=== PATIENT | male | born 1950 | race Caucasian/White ===

== ENCOUNTER 2017-09-27 18:34 | Emergency (ER) | payer OTHER ==
[~2017-09-27] VITALS: Ht 175.3 cm; Wt 90.7 kg
[~2017-09-27 18:34] MED LIST: CRESTOR5 MG PO; FLOMAX PO; MINOCYCLINE HC100 M2 PO; MOBIC15 MG PO; OXYCONTIN30 MG PO; PLAVIX 75 MG TA75 MG PO
[2017-09-27] MEDS ORDERED: ZOCOR20 MG PO (18:53)
[2017-09-27] MEDS ORDERED: ADVAIR HFA 230M12 GM INH (18:53)
[2017-09-27] MEDS ORDERED: SYNTHROID50 MCG PO (18:54)
[2017-09-27] MEDS ORDERED: ALENDRONATE SOD10 MG PO (18:54)
[2017-09-27] MEDS ORDERED: LISINOPRIL10 MG PO (18:54)
[2017-09-27] MEDS ORDERED: IBUPROFEN 800800 M1 PO (20:57)
[2017-09-27] MEDS ORDERED: PERCOCET PO (20:57)
[2017-09-27 21:47] VITALS: BP 135/85
== END 2017-09-27 21:48 | disposition home or self-care (01) ==
LOC: M.ERS 18:34
DX: S92.001A Unspecified fracture of right calcaneus, initial encounter for closed fracture (principal); N40.0 Benign prostatic hyperplasia without lower urinary tract symptoms; E78.00 Pure hypercholesterolemia, unspecified; I10 Essential (primary) hypertension; E03.9 Hypothyroidism, unspecified; J44.9 Chronic obstructive pulmonary disease, unspecified; Z90.49 Acquired absence of other specified parts of digestive tract; Z90.89 Acquired absence of other organs; W11.XXXA Fall on and from ladder, initial encounter; Y93.89 Activity, other specified; Y92.89 Other specified places as the place of occurrence of the external cause; Y99.8 Other external cause status

== ENCOUNTER → 2017-10-05 | Outpatient (CLI) | payer OTHER ==
[~2017-10-05] MED LIST changes: +ADVAIR HFA 230M12 GM INH; +ALENDRONATE SOD10 MG PO; +IBUPROFEN 800800 M1 PO; +LISINOPRIL10 MG PO; +PERCOCET PO; +SYNTHROID50 MCG PO; +ZOCOR20 MG PO
== END ==
LOC: M.NUC 10:31
DX: S92.001D Unspecified fracture of right calcaneus, subsequent encounter for fracture with routine healing (principal); M54.5 Low back pain; M25.559 Pain in unspecified hip; X58.XXXD Exposure to other specified factors, subsequent encounter

== ENCOUNTER 2020-02-14 23:04 | Emergency (ER) | payer OTHER ==
[~2020-02-14] VITALS: Ht 175.3 cm; Wt 90.7 kg
[2020-02-14] MEDS ORDERED: FLOMAX0.4 MG PO (23:20)
[2020-02-14] MEDS ORDERED: SIMVASTATIN40 MG PO (23:21)
[2020-02-14] MEDS ORDERED: ARNUITY ELLIPT50 MCG (23:22)
[2020-02-14] MEDS ORDERED: FOSAMAX 70 MG T70 MG PO (23:22)
[2020-02-14] MEDS ORDERED: LISINOPRIL PO (23:23)
[2020-02-14] MEDS ORDERED: LEVO-T50 MCG PO (23:24)
[2020-02-14] MEDS ORDERED: MELOXICAM15 MG PO (23:24)
[2020-02-14] MEDS ORDERED: [UNRECOGNIZED DRUG - OTHER] OPHTHALMIC (23:25)
[2020-02-15 00:01] LABS: HEMATOCRIT 42.6 % (42.0-52.0); HEMOGLOBIN 14.6 gm/dL (14.0-18.0); MCH 31.6 pg (26.0-34.0); MCHC 34.3 g/dL (28.0-37.0); NUCLEATED RBCS 0 /100WBC; PLATELET COUNT* 239 thou/uL (150-400); RBC 4.63 mil/uL (4.50-6.00); RDW-CV 13.7 % (10.5-14.5); WBC 10.8 thou/uL (4.0-11.0)
[2020-02-15 00:13] LABS: CALCIUM 9.1 mg/dL (8.5-10.1); CREATININE 1.3 mg/dL (0.6-1.3); POTASSIUM 4.2 mmol/L (3.5-5.1)
[2020-02-15 00:17] LABS: BE -3.9 mmol/L (-2 to +3); PCO2 29.5 mmHg (35.0-45.0); PO2 71.8 mmHg (75.0-100.0); pH 7.429 (7.340-7.450)
[2020-02-15 00:23] LABS: ALBUMIN 3.4 g/dL (3.4-5.0); TOTAL BILIRUBIN 0.3 mg/dL (<0.1-1.0); TOTAL PROTEIN 6.5 g/dL (6.4-8.2)
[2020-02-15 01:16] LABS: URINE BILIRUBIN NEGATIVE (Negative); URINE BLOOD NEGATIVE (Negative); URINE CLARITY CLEAR; URINE COLOR YELLOW; URINE GLUCOSE-RANDOM NEGATIVE (Negative); URINE KETONES NEGATIVE (Negative); URINE LEUKOCYTES-REFLEX NEGATIVE (Negative); URINE NITRITE-REFLEX NEGATIVE (Negative); URINE PROTEIN NEGATIVE (Negative); URINE UROBILINOGEN 0.2 E.U./dl (0.2-1.0)
[2020-02-15 01:53] VITALS: BP 118/76
[2020-02-15 02:01] LABS: ABSOLUTE BASOPHILS 0.1 thou/uL (0.0-0.2); ABSOLUTE LYMPHOCYTES 0.5 thou/uL (0.8-5.3); ABSOLUTE NEUTROPHILS 10.2 thou/uL (1.6-8.1)
[2020-02-15 02:02] LABS: PLATELET ESTIMATE ADEQUATE
--- NOTE | 2020-02-17 14:28 | EKG ---
[place] [address] ELECTROCARDIOGRAM REPORT Name: ARIA PALOMARES Room: [facility]#: [id number] Admission: 02/14/20 Attend Phys: Discharge: 02/15/20 Date of : 48 Date of Service: 02/15/20 0018 Report #: [id number] THIS REPORT FOR: //name// [facility] ED Test Date: 2020-02-15 Test Time: 00:18:54 Pat Name: ARIA PALOMARES Department: Room: Gender: Clinical Data Programmer: [facility] : 1950 Requested By: Bonita Lemos Order Number: [id number] MD: Casey Flowers Measurements Intervals [place] Rate: 72 P: 39 ME: 149 QRS: -24 QRSD: 99 T: 6 QT: 395 QTc: 433 Interpretive Statements Sinus rhythm Abnormal R-wave progression, early transition Left ventricular hypertrophy Compared to ECG 11/24/2009 12:48:15 Left ventricular hypertrophy now present Sinus bradycardia no longer present Electronically Signed On 02-17-2020 14:28:23 CDT by Casey Flowers [email or web address] <ELECTRONICALLY SIGNED> By: Casey Flowers MD, [facility] 02/17/20 1428 0018 0018 Casey Flowers MD, [facility] /EPI
== END 2020-02-15 01:56 | disposition home or self-care (01) ==
LOC: M.ERS 23:04
PROVIDERS: Personal Emergency Response Attendant
DX: R50.9 Fever, unspecified (principal); R05 Cough; I10 Essential (primary) hypertension; E78.00 Pure hypercholesterolemia, unspecified; J44.9 Chronic obstructive pulmonary disease, unspecified; Z20.828 Contact with and (suspected) exposure to other viral communicable diseases; Z90.49 Acquired absence of other specified parts of digestive tract